=== PATIENT | female | born 1990 | race Caucasian/White ===

== ENCOUNTER 2023-02-21 12:48 | Outpatient (CLI) | payer OTHER ==
[2023-02-21] MEDS ORDERED: PRENATABS RX T1 EACH (13:31)
== END 2023-02-21 13:50 | disposition left against medical advice (07) ==
LOC: OBS/DEL 12:48
PROVIDERS: ATTEND Obstetrics & Gynecology Maternal & Fetal Medicine
DX: O36.8130 Decreased fetal movements, third trimester, not applicable or unspecified (principal); Z3A.39 39 weeks gestation of pregnancy